=== PATIENT | female | born 1940 | race Two or more races ===

== ENCOUNTER 2023-08-30 13:24 | Emergency (ER) | payer OTHER ==
[~2023-08-30] VITALS: Ht 152.4 cm; Wt 58.1 kg
[2023-08-30] MEDS ORDERED: LEVOTHYROXINE25 MCG (14:22)
[2023-08-30] MEDS ORDERED: ROSUVASTATIN CAL5 MG PO (14:22)
[2023-08-30] MEDS ORDERED: AMLODIPINE-OLM1 EAC2 (14:22)
[2023-08-30] MEDS ORDERED: VAZALORE81 MG PO (14:23)
[2023-08-30] MEDS ORDERED: GABAPENTIN300 M2 PO (14:23)
[2023-08-30] MEDS ORDERED: PEPCID40 MG PO (14:23)
[2023-08-30] MEDS ORDERED: LASIX20 MG (14:23)
[2023-08-30] MEDS ORDERED: VITAMIN C500 M6 (14:24)
[2023-08-30] MEDS ORDERED: FOLIC ACID1 MG (14:24)
[2023-08-30] MEDS ORDERED: 0.9 % SODIUM CHLORIDE 500 ML IV ONE (15:15)
[2023-08-30] MEDS ORDERED: ONDANSETRON HCL 2 MG/ML VIAL IV ONE (15:15)
[2023-08-30] MEDS ORDERED: FAMOTIDINE/PF 20 MG/2 ML VIAL IV ONE (15:15)
[2023-08-30] MEDS ORDERED: KETOROLAC TROMETHAMINE 15 MG VIAL IV ONE (15:15)
[2023-08-30 15:39] LABS: HEMATOCRIT 32.9 % (36.0-45.00); HEMOGLOBIN 11.3 g/dL (12.0-15.00); MEAN CELL VOLUME 99.2 fL (80.00-100.00); MEAN CORPUSCULAR HEMOGLOBIN 34.1 pg (27.00-32.0); MEAN CORPUSCULAR HGB CONC 34.3 g/dl (32.0-36.0); PLATELET COUNT 200 K/uL (150-450); RED BLOOD COUNT 3.31 M/uL (4.00-6.00); RED CELL DISTRIBUTION WIDTH 12.9 % (11.5-14.5)
[2023-08-30 16:02] LABS: ALBUMIN 4.1 gm/dL (3.4-5.0); BILIRUBIN TOTAL 0.6 mg/dL (0.3-1.2); CALCIUM 10.1 mg/dL (8.5-10.1); CREATININE SERUM 1.94 mg/dL (0.55-1.02); GFR 24.65; GLOBULINA 4.1 G/DL (2.4-3.5); POTASSIUM 4.19 mEq/L (3.5-5.1); TOTAL PROTEIN 8.2 gm/dL (6.4-8.2)
[2023-08-30 17:19] LABS: URINE APPEARANCE Cloudy; URINE BILIRRUBIN Negative (NEGATIVE); URINE BLOOD Moderate; URINE COLOR Yellow; URINE GLUCOSE Negative (NEGATIVE); URINE LEUKOCYTE Trace; URINE NITRATE Negative; URINE UROBILINOGEN 0.2 E.U./dl
[2023-08-30 17:22] LABS: URINE EPITHELIAL CELLS 60.1 uL (0.0-38.8); URINE RBC 5.4 uL (0.0-20.8); URINE WBC 84.4 uL (0.0-23.2)
[2023-08-30 17:37] LABS: URINE BACTERIA > 9821.5 uL (0.0-1933); URINE PROTEIN 300 (NEGATIVE)
[2023-08-30] MEDS ORDERED: PRILOSEC OTC20 MG PO (18:06)
[2023-08-30] MEDS ORDERED: ONDANSETRON ODT4 MG SL (18:06)
[2023-08-30] MEDS ORDERED: CEFDINIR300 MG PO (18:06)
== END 2023-08-30 18:24 ==
LOC: ER 13:24
PROVIDERS: Nurse Practitioner Family
DX: R10.13 Epigastric pain (principal); N39.0 Urinary tract infection, site not specified; E11.9 Type 2 diabetes mellitus without complications; I10 Essential (primary) hypertension; Z87.09 Personal history of other diseases of the respiratory system
CPT/HCPCS: 36415; 96365; 96366; 99283; J1885; J2405; J3490